=== PATIENT | male | born 1955 | race Caucasian/White ===

== ENCOUNTER → 2021-09-06 | Outpatient (CLI) | payer OTHER | LOC: KOH-I 15:59 | DX: R31.9 Hematuria, unspecified (principal); I51.7 Cardiomegaly; I31.3 Pericardial effusion (noninflammatory); K57.30 Diverticulosis of large intestine without perforation or abscess without bleeding | CPT/HCPCS: 74176 ==

== ENCOUNTER 2022-05-21 19:01 | Inpatient (IN) | payer OTHER ==
[~2022-05-21] VITALS: Ht 170.2 cm; Wt 73.9 kg
[2022-05-21 20:24] LABS: HEMOGLOBIN 13.7 gm/dl (14.0-17.5); RED BLOOD COUNT 4.77 M/UL (4.20-5.50); WHITE BLOOD COUNT 9.3 K/UL (4.5-11.0)
[2022-05-21 21:00] LABS: BUN/CREATININE RATIO 10 (0-10)
[2022-05-22 05:40] LABS: HEMOGLOBIN 12.3 gm/dl (14.0-17.5); WHITE BLOOD COUNT 8.3 K/UL (4.5-11.0)
[2022-05-22 05:50] LABS: RED BLOOD COUNT 4.28 M/UL (4.20-5.50)
[2022-05-22 05:58] LABS: BUN/CREATININE RATIO 11 (0-10)
[2022-05-22] MEDS ORDERED: HYDROCODON-ACE1 EAC6 PO (09:38)
[2022-05-22] MEDS ORDERED: KLONOPIN TAB 00.5 MG PO (10:41)
[2022-05-22] MEDS ORDERED: GABAPENTIN600 MG PO (10:42)
[2022-05-22] MEDS ORDERED: PROPRANOLOL HCL40 MG PO (10:42)
[2022-05-22] MEDS ORDERED: ALFUZOSIN HCL E10 MG PO (10:42)
[2022-05-22] MEDS ORDERED: LIPITOR TAB 1010 MG PO (10:43)
[2022-05-22] MEDS ORDERED: BUSPIRONE HCL10 MG PO (10:43)
[2022-05-22] MEDS ORDERED: METOPROLOL SUCC25 MG PO (10:43)
[2022-05-22] MEDS ORDERED: QUETIAPINE FUMA25 MG PO (10:44)
[2022-05-22] MEDS ORDERED: LEVOCETIRIZINE D5 MG PO (10:44)
[2022-05-22] MEDS ORDERED: CARBIDOPA-LEVO1 EAC5 PO (10:44)
[2022-05-22] MEDS ORDERED: PROAIR HFA8.5 GM INH (10:44)
[2022-05-23 03:11] LABS: CANDIDA ALBICANS Not Detected (Negative); CANDIDA KRUSEI Not Detected (Negative); CANDIDA TROPICALIS Not Detected (Negative); ESCHERICHIA COLI Not Detected (Negative); HAEMOPHILUS INFLUENZAE Not Detected (Negative); KLEBSIELLA OXYTOCA Not Detected (Negative); KLEBSIELLA PNEUMONIAE Not Detected (Negative); KPC-CARBAPENEM-RESISTANCE GENE Not Detected (Negative); PROTEUS Not Detected (Negative); PSEUDOMONAS AERUGINOSA Not Detected (Negative); SERRATIA MARCESANS Not Detected (Negative); STAPHYLOCOCCUS AUREUS Not Detected (Negative); STREP AGALACTIAE (GROUP B) Not Detected (Negative); STREP PYOGENES (GROUP A) Not Detected (Negative); STREPTOCOCCUS Not Detected (Negative); vanA/B (VANCOMYCIN RESIST GENE Not Detected (Negative)
[2022-05-23 03:35] LABS: HEMOGLOBIN 12.5 gm/dl (14.0-17.5); RED BLOOD COUNT 4.34 M/UL (4.20-5.50); WHITE BLOOD COUNT 6.3 K/UL (4.5-11.0)
[2022-05-23 04:10] LABS: BUN/CREATININE RATIO 12 (0-10)
[2022-05-23 04:33] LABS: STAPHYLOCOCCUS DETECTED (Negative)
--- NOTE | 2022-05-24 10:55 | NUR ---
NGUYỄN CALLED TO MAKE AWARE THAT PATIENT OXYGEN DROPPED TO 76%. PATIENT WAS RESTING IN BED. NASAL CANNULA APPLIED 2L. OXYGEN CAME BACK UP TO 95%
[2022-05-24] MEDS ORDERED: SYMBICORT 16010.2 GM INH (11:37)
[2022-05-24] MEDS ORDERED: AMOX TR-K CLV1 EAC4 PO (11:42)
== END 2022-05-24 11:39 | disposition home or self-care (01) | DRG 177 ==
LOC: ER1 19:01 → M/S 23:33 → CDU 23:33 → M/S 05-22 01:22
PROVIDERS: Physician Assistant; Physician Assistant Medical; ADMIT Internal Medicine
DX: J69.0 Pneumonitis due to inhalation of food and vomit (principal); J96.01 Acute respiratory failure with hypoxia; I10 Essential (primary) hypertension; Z20.822 Contact with and (suspected) exposure to COVID-19; F41.8 Other specified anxiety disorders; G20 Parkinson's disease; G89.4 Chronic pain syndrome; E78.5 Hyperlipidemia, unspecified; N40.1 Benign prostatic hyperplasia with lower urinary tract symptoms; J44.9 Chronic obstructive pulmonary disease, unspecified; Z98.890 Other specified postprocedural states; Z88.8 Allergy status to other drugs, medicaments and biological substances; Z88.1 Allergy status to other antibiotic agents
CPT/HCPCS: 36415; 36600; 71045; 71046; 80048; 80053; 82550; 82553; 82803; 83880; 84484; 85025; 87040; 87077; 87150; 87186; 93005; 94640; 94664; 94760; 96374; 96375; 99285; G0378; J0456; J0696; J1335; J1650; J7030; U0002

== ENCOUNTER → 2022-08-07 | Outpatient (CLI) | payer OTHER ==
[~2022-08-07] MED LIST: ALFUZOSIN HCL E10 MG PO; AMOX TR-K CLV1 EAC4 PO; BUSPIRONE HCL10 MG PO; CARBIDOPA-LEVO1 EAC5 PO; GABAPENTIN600 MG PO; HYDROCODON-ACE1 EAC6 PO; KLONOPIN TAB 00.5 MG PO; LEVOCETIRIZINE D5 MG PO; LIPITOR TAB 1010 MG PO; METOPROLOL SUCC25 MG PO; PROAIR HFA8.5 GM INH; PROPRANOLOL HCL40 MG PO; QUETIAPINE FUMA25 MG PO; SYMBICORT 16010.2 GM INH
== END ==
LOC: KOH-I 11:00
DX: R93.89 Abnormal findings on diagnostic imaging of other specified body structures (principal); J44.9 Chronic obstructive pulmonary disease, unspecified; I31.3 Pericardial effusion (noninflammatory); R91.8 Other nonspecific abnormal finding of lung field
CPT/HCPCS: 71250